=== PATIENT | female | born 1995 | race African-American/Black ===

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

== ENCOUNTER 2017-02-06 22:12 | Emergency (ER) | payer OTHER ==
[~2017-02-06] VITALS: Ht 152.4 cm; Wt 68.0 kg
[2017-02-06 22:31] VITALS: BP 136/87
[2017-02-06] MEDS ORDERED: AMOXICILLIN875 M1 PO (23:45)
[2017-02-06] MEDS ORDERED: LIDOCAINE HCL V15 ML PO (23:45)
--- NOTE | 2017-02-06 23:45 | ED THROAT/DENTAL COMPLAINT ---
History of Present Illness General Chief Complaint: General Adult Stated Complaint: PT THROAT IS HURTING FOR 2DYS ? STREP Source: patient Exam Limitations: no limitations Vital Signs & Intake/Output Vital Signs & Intake/Output Vital Signs Date Time Temp Pulse Resp B/P B/P Pulse O2 O2 Flow FiO2 Mean Ox Delivery Rate 02/061 98.4 77 18 136/87 97 Room Air ED Intake and Output 02/07 0000 02/06 1200 Intake Total Output Total Balance Patient 150 lb Weight Weight Reported by Patient Measurement Method Allergies Coded Allergies: Penicillins (Severe, RASH 02/05/16) azithromycin (Severe, RASH, HIVES 01/05/16) ceftriaxone (Severe, RASH 01/05/16) Reconcile Medications Amoxicillin 875 MG TABLET 1 TAB PO BID sore throat Lidocaine HCl (Lidocaine HCl Viscous) 2 % SOLUTION 5 ML PO TID sore throat lidocaine, benadryl maalox equal parts Triage Note: PT TO ED C/O SORE THROAT FOR 2 DAYS. AFEBRILE IN TRIAGE Triage Nurses Notes Reviewed? yes Onset: Abrupt Duration: day(s): (2), constant, continues in ED Timing: recent history Injury Environment: home Severity: severe No Modifying Factors: none : No Patient currently breastfeeds: No HPI: 21-year-old female comes into emergency room with complaints of sore throat has been going on for the past 2 days. Associated chills. Mild cough. Patient reports that she thinks that the mucus might of been slightly blood-tinged. Denies any vomiting. Hurts to swallow. Patient here primarily for the sore throat. Denies any other associated symptoms. (TAYLER TAYLOR,MICKEY) Past History Travel History Traveled to [place] past 21 day No Medical History Any Pertinent Medical History? see below for history Neurological: NONE EENT: strep throat Cardiovascular: NONE Respiratory: asthma Gastrointestinal: NONE Hepatic: NONE Renal: NONE Musculoskeletal: NONE Psychiatric: anxiety, depression, substance abuse, PTSD Endocrine: NONE Blood Disorders: NONE Cancer(s): NONE FAMILY EDUCATOR/Reproductive: OVARIAN CYST History of MRSA: No History of VRE: No History of CDIFF: No Surgical History Surgical History: Psychosocial History Who do you live with Family What is your primary language Syriac Tobacco Use: Current Daily Use Daily Tobacco Use Amount/Type: =< 4 Cigarettes daily ETOH Use: occasional use Illicit Drug Use: denies illicit drug use Family History Hx Contributory? No (MICKEY WYMAN) Review of Systems Review of Systems Constitutional: Reports: see HPI. EENTM: Reports: see HPI. Respiratory: Reports: see HPI. Cardiovascular: Reports: no symptoms. GI: Reports: no symptoms. Genitourinary: Reports: no symptoms. Musculoskeletal: Reports: no symptoms. Skin: Reports: no symptoms. Neurological/Psychological: Reports: no symptoms. Hematologic/Endocrine: Reports: no symptoms. Immunologic/Allergic: Reports: no symptoms. All Other Systems: Reviewed and Negative (MICKEY WYMAN) Physical Exam Physical Exam General Appearance: well developed/nourished, no apparent distress, alert Head: atraumatic, normal appearance Eyes: Bilateral: normal appearance. Ears: Bilateral: canal normal, Tympanic normal. Nose: normal inspection Mouth/Throat: tonsillar swelling, pharyngeal eythema Neck: normal inspection, lymphadenopathy (R), lymphadenopathy (L) Cardiovascular/Respiratory: normal breath sounds, regular rate/rhythm, no respiratory distress Back: normal inspection Neurologic/Psych: awake, alert, oriented x 3, normal gait, normal mood/affect Skin: intact, normal color Core Measures ACS in differential dx? No Severe Sepsis Present: No Septic Shock Present: No (MICKEY WYMAN) Progress Differential Diagnosis: aspirated tooth, carious tooth, epiglottitis, Ludwigs angina, meningitis, odontogenic abscess, faisal-tonsillar abscess, pharyngeal for. body, stomatitis/gingivitis, strep pharyngitis, tooth fracture Plan of Care: Orders Procedure Date/time Status THROAT CULTURE W/QUICK STREP 02/06 2221 Active Departure Departure Disposition: HOME OR SELF CARE Condition: Stable Clinical Impression Primary Impression: Pharyngitis Referrals: MICAELA MORRIS MD (PCP/Family) Additional Instructions: Take amoxicillin and Magic mouthwash as prescribed. Follow-up with your primary care doctor. Return if any concerns worsening symptoms. Please go over all results of today's visit with your primary care doctor. Contact your primary care doctor to let them know you were here in the emergency room. There may be nonspecific findings which may not be related to your visit today here in the emergency room but may require further evaluation and chronic monitoring by your primary care doctor. If you had a laceration today the chance of foreign body always remains. You should follow-up with your primary care doctor for recheck in 3-5 days for a wound check. If you had an x-ray done there is a chance that a fracture could have been missed on initial read and you should follow-up with your primary care doctor for repeat x-rays if symptoms persist. If your blood pressure was elevated here in the emergency room please have rechecked by her primary care doctor within the next 48 hours by your primary care doctor. If you were prescribed a narcotic here in the emergency room or any type of controlled substances you're not allowed to drive while taking this medication or operate any type of heavy machinery. Narcotics can make you feel lightheaded dizziness nausea and can cause constipation. You may need to picking machine operator a stool softener. Thank you for choosing [facility] emergency room. Please return to the emergency room immediately if you have any other concerns worsening of symptoms. Departure Forms: Customer Survey General Discharge Information Prescriptions: Current Visit Scripts Amoxicillin 1 TAB PO BID #20 TAB Lidocaine HCl (Lidocaine HCl Viscous) 5 ML PO TID #100 ML lidocaine, benadryl maalox equal parts Comments Patient clinically looks well. Patient is nontoxic-appearing. In no apparent distress. Some pharyngeal erythema and swelling. Negative strep. Due to persistent sore throat in severity patient covered with antibiotics. The blood that the patient was complaining about was likely coming from the posterior pharynx as opposed to true hemoptysis. There is no suspicion for pulmonary embolism or pneumonia at this time. Patient treated with amoxicillin. Dose of Decadron. Follow-up with primary care doctor. Clinically looks well. No stridor. No signs of peritonsillar abscess or Yovani's angina. Patient understands and agrees a plan of care. (TAYLER TAYLOR,MICKEY) PA/QUALITY SYSTEMS MANAGER Co-Sign Statement Statement: ED Attending supervision documentation- [] I saw and evaluated the patient. I have also reviewed all the pertinent lab results and diagnostic results. I agree with the findings and the plan of care as documented in the PA's/QUALITY SYSTEMS MANAGER's documentation. [x] I have reviewed the ED Record and agree with the PA's/QUALITY SYSTEMS MANAGER's documentation. [] Additions or exceptions (if any) to the PAs/QUALITY SYSTEMS MANAGER's note and plan are summarized below: [] (MARGARET DOYLE,YURY Asher)
== END 2017-02-07 00:20 ==
LOC: ERH 22:12
DX: J02.9 Acute pharyngitis, unspecified (principal)